=== PATIENT | female | born 1995 | race Caucasian/White ===

== ENCOUNTER 2018-05-09 22:27 | Emergency (ER) | payer BC ==
--- NOTE | 2018-05-09 22:33 | ER Report ---
History and Physical Time Seen By MD: 22:32 HPI/ROS CHIEF COMPLAINT: Numbness in tongue and reports of subtle facial droop. HISTORY OF PRESENT ILLNESS: Patient is a 22-year-old female here with complaints of numbness in tongue and reports of subtle facial drooping. There is also mild noted decreased forehead wrinkling on the right side. Patient reports that the symptoms started shortly prior to arrival. Patient is otherwise well-appearing and denies headache, blurred vision or difficulty swallowing, fevers or chills. REVIEW OF SYSTEMS: Constitutional: No fever, no chills. Eyes: No discharge. HEENT: + right facial drooping, tongue paresthesias, + decreased right forehead wrinkling Cardiovascular: No chest pain, no palpitations. Respiratory: No cough, no shortness of breath. Gastrointestinal: No abdominal pain, no vomiting. Genitourinary: No hematuria. Musculoskeletal: No back pain. Skin: No rashes. Neurological: No headache. Allergies: Coded Allergies: No Known Drug Allergies (Unverified , 05/09/18) Home Meds Active Scripts Prednisone (PREDNISONE) 20 Mg Tablet, 60 MG PO QDAY for 7 Days, #21 TAB Prov:MISSY ROBLES DO 05/09/18 Valacyclovir Hcl (VALACYCLOVIR) 1,000 Mg Tablet, 1000 MG PO TID for 7 Days, #21 TAB Prov:MISSY ROBLES DO 05/09/18 Reported Medications Sertraline Hcl (SERTRALINE HCL) 50 Mg Tablet, 1 TAB PO QDAY, TAB 05/09/18 Constitutional Vital Sign - Last 24 Hours 05/09/18 05/09/18 05/09/18 05/09/18 22:31 22:32 22:42 22:57 Temp 98.3 Pulse 97 105 86 Resp 16 B/P (MAP) 146/100 (115) 146/100 Pulse Ox 95 96 95 O2 Delivery Room Air 05/09/18 05/09/18 05/09/18 23:00 23:12 23:27 Pulse 89 ??? B/P (MAP) 120/82 (95) Pulse Ox 95 Physical Exam General Appearance: The patient is alert, has no immediate need for airway protection and no signs of toxicity. NAD Eyes: Pupils equal and round no pallor or injection. ENT, Mouth: Mucous membranes are moist, + right forehead decreased wrinkling, mild droop in corner of mouth Respiratory: There are no retractions, lungs are clear to auscultation. Cardiovascular: Regular rate and rhythm. Gastrointestinal: Abdomen is soft and non tender, no masses, bowel sounds normal. Neurological: No focal neuro deficits Skin: Warm and dry, no rashes. Musculoskeletal: Neck is supple non tender. Extremities are nontender, nonswollen and have full range of motion. DIFFERENTIAL DIAGNOSIS: After history and physical exam differential diagnosis was considered for Vásquez's palsy, viral syndrome, stroke, electrolyte imbalance Medical Decision Making ED Course/Re-evaluation ED Course Patient is a 22-year-old female here with complaints of tongue paresthesias, facial droop, decreased forehead wrinkling consistent with Vásquez's palsy. I provided the patient with Vásquez's palsy precautions such as wearing an eye patch during sleep, artificial tears. Patient was given scripts for valacyclovir as well as prednisone and advised follow-up with her PCP in the next several days. Patient voiced understanding. Patient was stable at time of discharge. Decision to Disposition Date: May 09, 2018 Decision to Disposition Time: 23:30 Depart Departure Latest Vital Signs Vital Signs Date Time Temp Pulse Resp B/P (MAP) Pulse Ox O2 Delivery O2 Flow Rate FiO2 05/09/18 23:27 ??? 05/09/18 23:12 95 05/09/18 23:00 120/82 (95) 05/09/18 22:32 98.3 16 Room Air Impression: Primary Impression: Vásquez palsy Condition: Improved Disposition: HOME OR SELF-CARE New Scripts Prednisone (PREDNISONE) 20 Mg Tablet 60 MG PO QDAY for 7 Days, #21 TAB Prov: MISSY ROBLES DO 05/09/18 Valacyclovir Hcl (VALACYCLOVIR) 1,000 Mg Tablet 1000 MG PO TID for 7 Days, #21 TAB Prov: MISSY ROBLES DO 05/09/18 Patient Instructions: Vásquez Palsy (ED), Prednisone (By mouth), Valacyclovir (By mouth) Additional Instructions: Take 1 tablet of valacyclovir 3 times a day for one week. Take 3 tablets of prednisone for one week daily. Please follow up with her family doctor 3 days. Please return if you develop worsening headaches, blurred vision, difficulty swallowing, chest pain shortness breath, fevers MISSY ROBLES DO May 09, 2018 22:33
[2018-05-09] MEDS ORDERED: SERT-184 PO (22:39)
[2018-05-09] MEDS ORDERED: predniSONE 20 MG TAB PO ONE (22:55)
[2018-05-09] MEDS ORDERED: valACYclovir HCL 500 MG TAB PO ONE (22:55)
[2018-05-09] MEDS ORDERED: VALA100059 PO (22:58)
[2018-05-09] MEDS ORDERED: PRED20TA6 PO (22:58)
[2018-05-09 23:00] VITALS: BP 120/82
== END 2018-05-09 23:30 | disposition home or self-care (01) ==
LOC: ER 22:36
DX: G51.0 Bell's palsy (principal)
CPT/HCPCS: 99283; J7512